=== PATIENT | female | born 1990 | race Caucasian/White ===

== ENCOUNTER 2023-02-21 17:42 | Emergency (ER) | payer BC ==
[~2023-02-21] VITALS: Ht 170.2 cm; Wt 95.3 kg
[2023-02-21 17:50] VITALS: BP 130/75; PULSE 71; RESP 20; TEMP 97.1; O2SAT 100
== END 2023-02-21 18:45 | disposition left against medical advice (07) ==
LOC: MED 17:42
DX: F41.9 Anxiety disorder, unspecified (principal); R07.9 Chest pain, unspecified; R00.2 Palpitations; Z88.0 Allergy status to penicillin; Z88.1 Allergy status to other antibiotic agents; Z79.899 Other long term (current) drug therapy
CPT/HCPCS: 99283

== ENCOUNTER 2023-12-08 03:04 | Emergency (ER) | payer BC ==
[~2023-12-08] VITALS: Ht 170.2 cm; Wt 97.5 kg
[2023-12-08 03:08] VITALS: BP 130/88; PULSE 110; RESP 20; TEMP 98; O2SAT 99
[2023-12-08 03:35] LABS: APPEARANCE,URINE CLEAR (CLEAR); BILIRUBIN,URINE NEGATIVE (NEGATIVE); BLOOD, URINE TRACE-I (NEGATIVE); COLOR,URINE YELLOW (YELLOW); LEUKOCYTE ESTERASE ,URINE NEGATIVE (NEGATIVE); NITRITE, URINE NEGATIVE (NEGATIVE); PROTEIN,URINE NEGATIVE (NEGATIVE); UGLUCOSE NEGATIVE (NEGATIVE); UROBILINOGEN,URINE 0.2 EU/dL (0.2 - 1)
[2023-12-08 03:38] LABS: BACTERIA,URINE >30 (MANY) /HPF (None Seen); MUCUS,URINE 1+ /LPF (None Seen); RBC,URINE 0-5 /HPF (0-5); SQUAMOUS EPITHELIAL CELL,UR 0-3 (FEW) /LPF (0-3 (FEW)); WBC,URINE 0-5 /HPF (0-5)
[2023-12-08 03:59] LABS: BASOPHILS % (AUTO) 0.3 % (0.0-2.0); EOSINOPHILS # (AUTO) 0.2 K/uL (0-0.4); EOSINOPHILS % (AUTO) 2.2 % (0.0-4.0); HEMATOCRIT 40.4 % (36-48); HEMOGLOBIN 13.7 g/dL (12.0-16.0); LYMPHOCYTES # (AUTO) 2.3 K/uL (2.5-16.5); LYMPHOCYTES % (AUTO) 27.9 % (20.5-51.1); MEAN CORPUSCULAR HEMOGLOBIN 31 pg (27-31); MEAN CORPUSCULAR HGB CONC 34 g/dL (33-37); MEAN CORPUSCULAR VOLUME 90.5 fL (80-94); MONOCYTES # (AUTO) 0.6 K/uL (0.8-1.0); MONOCYTES % (AUTO) 7.6 % (1.7-9.3); PLATELET COUNT (AUTO) 229 K/uL (140-450); RED BLOOD CELL COUNT(AUTO) 4.46 MIL/uL (4.20-5.40); RED CELL DISTRIBUTION WIDTH 13.3 % (11.6-13.7); WHITE BLOOD COUNT (AUTO) 8.1 K/uL (4.8-10.8)
[2023-12-08 04:11] LABS: ANION GAP 12.3 (8-16); CALCIUM 8.4 mg/dL (8.5-10.1); CARBON DIOXIDE 27.5 mmol/L (21-32); CREATININE 0.8 mg/dL (0.6-1.3); POTASSIUM 3.8 mmol/L (3.5-5.1)
[2023-12-08 04:15] LABS: ALBUMIN 3.6 g/dL (3.4-5.0); BILIRUBIN,DIRECT 0.1 mg/dL (0.0-0.3); TOTAL BILIRUBIN 0.4 mg/dL (0.0-1.0); TOTAL PROTEIN, SERUM 7.2 g/dL (6.4-8.2)
[2023-12-08] MEDS ORDERED: KETOROLAC 15 MG/ML VIAL ONE (04:15)
[2023-12-08] MEDS: KETOROLAC 30 MG/ML VIAL IVP ONE (04:16)
[2023-12-08] MEDS: MORPHINE SULFATE 4 MG/ML SYR IVP ONE ×2 (04:22→07:05)
[2023-12-08] MEDS: ONDANSETRON 4 MG/2 ML VIAL IVP ONE (04:23)
[2023-12-08] MEDS ORDERED: MORPHINE SULFATE 4 MG/ML SYR ONE (07:00)
[2023-12-08] MEDS: NACL 0.9% 1,000 ML IV ONE (07:05)
[2023-12-08 09:04] VITALS: BP 103/58; PULSE 78; RESP 18; TEMP 97.6; O2SAT 98
== END 2023-12-08 09:04 | disposition home or self-care (01) ==
LOC: MED 03:04
DX: R10.31 Right lower quadrant pain (principal); R11.10 Vomiting, unspecified; R19.7 Diarrhea, unspecified; F41.9 Anxiety disorder, unspecified; Z88.0 Allergy status to penicillin; Z88.1 Allergy status to other antibiotic agents
CPT/HCPCS: 36415; 74176; 76856; 80048; 80076; 81001; 81025; 83690; 85025; 87086; 93976; 96361; 96374; 96375; 96376; 99285; J1885; J2270; J2405; J7030; Q0092

== ENCOUNTER 2023-12-14 16:01 | Emergency (ER) | payer BC ==
[~2023-12-14] VITALS: Ht 170.2 cm; Wt 97.5 kg
[2023-12-14 16:04] VITALS: BP 140/74; PULSE 104; RESP 20; TEMP 98.5; O2SAT 99
[2023-12-14 17:11] LABS: BASOPHILS % (AUTO) 0.6 % (0.0-2.0); EOSINOPHILS # (AUTO) 0.1 K/uL (0-0.4); EOSINOPHILS % (AUTO) 1.7 % (0.0-4.0); HEMATOCRIT 41.3 % (36-48); HEMOGLOBIN 13.6 g/dL (12.0-16.0); LYMPHOCYTES % (AUTO) 29.7 % (20.5-51.1); MEAN CORPUSCULAR HEMOGLOBIN 30 pg (27-31); MEAN CORPUSCULAR HGB CONC 33 g/dL (33-37); MONOCYTES # (AUTO) 0.5 K/uL (0.8-1.0); MONOCYTES % (AUTO) 7.5 % (1.7-9.3); NEUTROPHILS # (AUTO) 4.2 K/uL (1.8-7.7); NEUTROPHILS % (AUTO) 60.5 % (42.2-75.2); PLATELET COUNT (AUTO) 215 K/uL (140-450); RED BLOOD CELL COUNT(AUTO) 4.54 MIL/uL (4.20-5.40); RED CELL DISTRIBUTION WIDTH 13.4 % (11.6-13.7); WHITE BLOOD COUNT (AUTO) 6.9 K/uL (4.8-10.8)
[2023-12-14 17:36] LABS: ANION GAP 9.6 (8-16); CALCIUM 8.9 mg/dL (8.5-10.1); CARBON DIOXIDE 30.1 mmol/L (21-32); CREATININE 0.9 mg/dL (0.6-1.3); POTASSIUM 3.7 mmol/L (3.5-5.1)
[2023-12-14 17:40] LABS: ALBUMIN 3.8 g/dL (3.4-5.0); TOTAL BILIRUBIN 0.3 mg/dL (0.0-1.0); TOTAL PROTEIN, SERUM 7.4 g/dL (6.4-8.2)
[2023-12-14 17:46] LABS: APPEARANCE,URINE CLEAR (CLEAR); BILIRUBIN,URINE NEGATIVE (NEGATIVE); BLOOD, URINE NEGATIVE (NEGATIVE); COLOR,URINE YELLOW (YELLOW); LEUKOCYTE ESTERASE ,URINE NEGATIVE (NEGATIVE); NITRITE, URINE NEGATIVE (NEGATIVE); PROTEIN,URINE NEGATIVE (NEGATIVE); UGLUCOSE NEGATIVE (NEGATIVE); UROBILINOGEN,URINE 0.2 EU/dL (0.2 - 1)
[2023-12-14 18:26] VITALS: O2SAT 99
[2023-12-14] MEDS: ONDANSETRON 4 MG/2 ML VIAL IVP ONE ×2 (18:26→19:49)
[2023-12-14] MEDS: MORPHINE SULFATE 4 MG/ML SYR IVP ONE (18:26)
[2023-12-14] MEDS ORDERED: IBUP-2213 PO (19:44)
[2023-12-14] MEDS ORDERED: ONDA8TAB87 PO (19:44)
[2023-12-14] MEDS ORDERED: ACET-8905 PO (19:44)
[2023-12-14 20:12] VITALS: BP 140/74; PULSE 104; RESP 20; TEMP 98.5; O2SAT 99
== END 2023-12-14 20:12 | disposition home or self-care (01) ==
LOC: MED 16:01
DX: R10.31 Right lower quadrant pain (principal); R11.0 Nausea; M54.9 Dorsalgia, unspecified; J45.909 Unspecified asthma, uncomplicated; R03.0 Elevated blood-pressure reading, without diagnosis of hypertension; Z88.0 Allergy status to penicillin; Z88.1 Allergy status to other antibiotic agents
CPT/HCPCS: 36415; 74176; 80048; 80076; 81003; 81025; 83690; 85025; 96374; 96375; 96376; 99285; J2270; J2405